=== PATIENT | male | born 1995 | race Caucasian/White ===

== ENCOUNTER 2016-06-25 20:19 | Emergency (ER) | payer OTHER ==
[2016-06-25] MEDS ORDERED: Ibuprofen 200 MG TAB ONE (21:50)
[2016-06-25] MEDS ORDERED: LIDOCAINE 1% MDV 20 ML ONE (21:58)
== END 2016-06-25 23:31 | disposition home or self-care (01) ==
LOC: ER 20:19

== ENCOUNTER 2016-06-27 20:39 | Inpatient (IN) | payer SELFPAY ==
[~2016-06-27] VITALS: Ht 185.4 cm; Wt 58.3 kg
[2016-06-27] MEDS ORDERED: DIPHENHYDRAMINE 50 MG/ML VIAL IM PRN (20:50)
[2016-06-27] MEDS ORDERED: ALU/MAG/SIM 30 ML UDC PO PRN (20:50)
[2016-06-27] MEDS ORDERED: ACETAMINOPHEN 325 MG TAB PO PRN (20:50)
[2016-06-27] MEDS ORDERED: LORAZEPAM 2 MG TAB PO PRN (20:50)
[2016-06-27] MEDS ORDERED: DIPHENHYDRAMINE 50 MG CAP PO PRN (20:50)
[2016-06-27] MEDS ORDERED: LORAZEPAM 2 MG/ML VIAL IM PRN (20:50)
[2016-06-27] MEDS ORDERED: TRAZODONE 50 MG TAB PO PRN (20:50)
[2016-06-27] MEDS ORDERED: HALOPERIDOL 5 MG TAB PO PRN (20:50)
[2016-06-27] MEDS ORDERED: MAG HYDROX 30 ML UDC PO PRN (20:50)
[2016-06-27] MEDS ORDERED: HALOPERIDOL 5 MG/ML VIAL IM PRN (20:50)
[2016-06-27 21:30] VITALS: BP_SYST 143; RESP 16; TEMP 98.4
[2016-06-27 22:00] VITALS: BMI 36.4
[2016-06-28 08:25] VITALS: BP_SYST 137; RESP 18; TEMP 97.3
[2016-06-28] MEDS ORDERED: MULTIVITS/MINERALS (THERAGRAN M) TAB PO SCH (09:00)
[2016-06-28] MEDS ORDERED: NICOTINE 2 MG GUM PO PRN (11:15)
[2016-06-28] MEDS ORDERED: risperiDONE 2 MG TAB PO SCH (11:15)
[2016-06-28 14:06] VITALS: BP_SYST 137; RESP 18; TEMP 97.3
[2016-06-28] MEDS ORDERED: LITHIUM 450 MG PO SCH (21:00)
== END 2016-06-28 16:30 | DRG 885 ==
LOC: ENRESERVTM → ENRESERVDT → PSY 21:08
PROVIDERS: ADMIT Psychiatry & Neurology Psychiatry; ATTEND Psychiatry & Neurology Psychiatry
CPT/HCPCS: 80178